=== PATIENT | female | born 2005 | race Hispanic/Latino ===

== ENCOUNTER 2024-03-14 20:57 | Emergency (ER) | payer MEDICAID, SELFPAY ==
[2024-03-14 20:58] VITALS: BP 147/86; PULSE 72; RESP 14; TEMP 35.7; O2SAT 98
[2024-03-14 21:01] VITALS: BMI 34.2
--- NOTE | 2024-03-14 21:45 | RAD_ITS ---
INDICATION: injury EXAMINATION/TECHNIQUE: X-RAY - LEFT XR Foot Min 3 Views 3 VIEWS COMPARISON: FINDINGS: SOFT TISSUES: No soft tissue swelling or gas. No radiopaque foreign body. BONES/JOINTS: No acute fracture or subluxation.. Normal alignment. Preservation of the joint space.. No sclerotic or destructive changes observed. RAD/Foot min 3 Views IMPRESSION: No acute bony injury. Electronically Signed: Sriram Nolasco DO at 22:11 EDT ,
--- NOTE | 2024-03-14 22:21 | EDS_ITS ---
HPI History of Present Illness Chief Complaint: Lower Extremity Injury Informant: patient Narrative Narrative: Patient presents with an injury to her left foot. She states there was a very heavy radiant heater that sits on the floor usually but was up on a shelf and it fell off as she was getting something, landing on her left foot, more the first ray and the medial aspect of the arch. Lots of pain hard to bear weight. This occurred about 24 hours ago. PFSH PFSH Medical History no medical history no medical history Home Medications ?Medication ?Instructions ?Recorded ?Last Taken ?Type NK 03/14/24 Unknown History Allergy/AdvReac Type Severity Reaction Status Date / Time No Known Allergies Allergy Verified 03/14/24 21:01 Social History Smoking Status: Never smoker ROS ROS ED Constitutional Constitutional ED: Denies chills or fever(s) Musculoskeletal Musculoskeletal: Reports extremity pain; Denies neck pain Integumentary Denies Abrasions, rash or wounds Neurologic Neurologic: Denies paresthesias or weakness EXAM Physical Exam Const Vital Signs: 03/14/24 20:58 Temperature 96.2 F L Temperature Source Temporal Pulse Rate 72 Respiratory Rate 14 Blood Pressure 147/86 H Blood Pressure Mean 106 Pulse Ox 98 Positive well nourished and well developed General Appearance ED: well developed and NAD Neck full ROM and supple Back/Spine normal ROM and normal to inspection Extremity Extremity Narrative: Patient has tenderness throughout the left great toe, including the MTPJ and a little bit in the distal half of the first metacarpal. Some mild tenderness in the soft tissues of the arch tibially, but no other bony tenderness including the midfoot and the other 4 rays in their entirety. There is a large subungual hematoma beneath the nail of the great toe and it is very tender. There is no loosening of the nail from the bed distally, and the base of the nail is intact within the root/cuticle. The pad is soft and nondistended. There are no other areas of injury. The ankle and everywhere else are nontender. Neuro oriented x3, no focal motor deficits and no sensory deficits noted Sensorium / Orientation: alert Psych mental status grossly normal and thought process normal Skin no wounds Rashes: no rashes MDM MDM MDM Narrative Medical decision making narrative: Three-view x-ray series of the left foot is negative for acute fracture or dislocation on my interpretation, radiology was in agreement. I discussed trephination of the nail with the patient we did this, she gave verbal consent. See the procedure note. Given appropriate discharge instructions. Radiography Diagnostic Testing: Clinical Impression(s) from Imaging Studies Foot X-Ray 03/14/24 21:45 IMPRESSION: No acute bony injury. Electronically Signed: Sriram DO Gaurav at 22:11 EDT Reading Location ID and State: [facility] / [place] Tel [phone], Service support , Procedures Other Procedures Procedure(s): Nail trephination: After verbal consent from the patient, the nail of the left great toe was prepped with Betadine swab, and trephinated gently toward the distal aspect of the subungual hematoma middle of the nail with regards to lateral positioning, with a low temperature sterile electrocautery probe. Discharge was able to be expressed, the patient then continued to apply pressure to her toe express is much as she could, after which nurses placed a dressing with bacitracin. She tolerated well there were no complications and she felt better. Discharge Plan Triage Chief Complaint: Lower Extremity Injury ED Provider: Dl Tirado Dx/Rx/DC Orders Clinical Impression: Subungual hematoma of great toe of left foot, Contusion of foot, left Instructions: ED Subungual Hematoma Prescriptions: No Action NK Primary Care Provider: MICHELLE CULVER Referrals: MICHELLE CULVER MD [Primary Care Provider] - As Needed Print Language: Romanian Disposition Disposition: Home, Self Care
[2024-03-14 22:40] VITALS: BP 144/86; PULSE 80; RESP 16; TEMP 35.8; O2SAT 96
== END 2024-03-14 22:42 | disposition home or self-care (01) ==
PROVIDERS: Emergency Provider Emergency Medicine; PCP Pediatrics Pediatric Nephrology; Visit Provider Emergency Medicine
DX: S90.112A Contusion of left great toe without damage to nail, initial encounter (principal); S90.32XA Contusion of left foot, initial encounter; X58.XXXA Exposure to other specified factors, initial encounter
CPT/HCPCS: 73630; 99282